=== PATIENT | male | born 1945 | race Caucasian/White ===

== ENCOUNTER 2018-07-11 06:57 | Emergency (ER) | payer OTHER ==
[~2018-07-11] VITALS: Ht 177.8 cm; Wt 99.8 kg
[2018-07-11 06:57] VITALS: BP_SYST 179
[2018-07-11] MEDS ORDERED: COR6.25 PO (07:02)
[2018-07-11] MEDS ORDERED: LISI10TA5 PO (07:02)
[2018-07-11] MEDS ORDERED: BENZ-16 PO (07:02)
[2018-07-11] MEDS ORDERED: FURO-150 PO (07:02)
[2018-07-11] MEDS ORDERED: NITROGLYCERIN 0.4 MG TAB.SUBL SL ONE ×2 (07:13→07:15)
[2018-07-11] MEDS ORDERED: NITROGLYCERIN 1 INCH (GM) OINT. TP ONE (07:15)
[2018-07-11] MEDS ORDERED: IPRATROPIUM BROM 0.5 MG/2.5 ML VIAL.NEB (ATROVENT) IH ONE (07:15)
[2018-07-11] MEDS ORDERED: ASPIRIN 81 MG TAB.CHEW PO ONE ×2 (07:15)
[2018-07-11] MEDS ORDERED: ALBUTEROL SULFATE 0.083% 2.5 MG/3 ML VIAL.NEB IH ONE (07:15)
[2018-07-11] MEDS ORDERED: methylPREDNISolone SOD SUCC/PF 62.5 MG/ML VIAL IVP ONE (07:15)
[2018-07-11] MEDS ORDERED: HEPARIN SODIUM,PORCINE 5000 UNITS/ML VIAL IVP ONE (07:15)
[2018-07-11] MEDS ORDERED: MAGNESIUM SULFATE 50 ML IV ONE (07:15)
[2018-07-11 07:28] LABS: ANION GAP 9 (5-15); BASOPHILS # (AUTO) 0.2 K/uL (0.0-0.2); BASOPHILS % (AUTO) 1.4 % (0.0-2.0); CALCIUM 9.6 mg/dL (8.4-11.0); CHLORIDE 98 mmol/L (98-107); CREATININE 1.49 mg/dL (0.55-1.30); EOSINOPHILS # (AUTO) 0.9 K/uL (0.0-0.4); EOSINOPHILS % (AUTO) 8.3 % (0.0-4.0); GLUCOSE 213 mg/dL (70-99); HEMATOCRIT 54.4 % (36-54); HEMOGLOBIN 18.6 g/dL (14.0-18.0); LYMPHOCYTES # (AUTO) 2.4 K/uL (1.0-5.5); LYMPHOCYTES % (AUTO) 20.9 % (20.5-51.5); MEAN CORPUSCULAR HEMOGLOBIN 32 pg (27-31); MEAN CORPUSCULAR HGB CONC 34 % (32-36); MEAN CORPUSCULAR VOLUME 95 fL (79.0-98.0); MONOCYTES % (AUTO) 8.5 % (1.7-9.3); NEUTROPHILS # (AUTO) 6.8 K/uL (1.8-7.7); NEUTROPHILS % (AUTO) 60.9 % (40.0-70.0); PLATELET COUNT (AUTO) 252 K/uL (130-430); POTASSIUM 4.7 mmol/L (3.5-5.1); RED BLOOD CELL COUNT(AUTO) 5.74 MIL/uL (4.2-6.2); RED CELL DISTRIBUTION WIDTH 14.1 % (9.0-15.0); SODIUM SERUM 134 mmol/L (136-145); UREA NITROGEN, BLOOD 18 mg/dL (8-21); WHITE BLOOD COUNT (AUTO) 11.3 K/uL (4.8-10.8)
[2018-07-11 07:32] LABS: ALANINE AMINOTRANSFERASE 39 U/L (12-78); ALBUMIN 4.2 g/dL (3.4-4.8); ASPARTATE AMINOTRANSFERASE 23 U/L (10-37); INR 0.9 (0.80-1.20); PROTHROMBIN TIME 9.5 SECS (9.5-12.5); TOTAL BILIRUBIN 0.6 mg/dL (0.0-1.0)
[2018-07-11] MEDS ORDERED: METOPROLOL TARTRATE 5 MG/5 ML VIAL ONE (07:41)
[2018-07-11] MEDS ORDERED: METOPROLOL TARTRATE 5 MG/5 ML VIAL IVP ONE (07:45)
[2018-07-11 07:49] VITALS: BP_SYST 107
== END 2018-07-11 07:49 | disposition short-term general hospital (02) ==
LOC: SED 06:57
DX: I21.3 ST elevation (STEMI) myocardial infarction of unspecified site (principal); R06.02 Shortness of breath; I10 Essential (primary) hypertension; Z86.79 Personal history of other diseases of the circulatory system; Z85.22 Personal history of malignant neoplasm of nasal cavities, middle ear, and accessory sinuses; Z85.828 Personal history of other malignant neoplasm of skin; Z79.899 Other long term (current) drug therapy
CPT/HCPCS: 36415; 36600; 71045; 80053; 82550; 82803; 83880; 84484; 85025; 85610; 85730; 93005; 94640; 94660; 96374; 96375; 99285; J1644; J2930; J3475; J3490; J7613

== ENCOUNTER 2020-07-21 06:30 | Emergency (ER) | payer OTHER ==
[~2020-07-21] VITALS: Ht 172.7 cm; Wt 90.7 kg
[2020-07-21 06:30] VITALS: BP_SYST 162
[~2020-07-21 06:30] MED LIST: BENZ-16 PO; COR6.25 PO; FURO-150 PO; LISI10TA5 PO
[2020-07-21] MEDS: HEPARIN SODIUM,PORCINE 5,000 UNITS/ML VIAL IVP ONE (06:53)
[2020-07-21] MEDS: NITROGLYCERIN 250 ML IV ONE (06:53)
[2020-07-21 06:57] LABS: BASOPHILS # (AUTO) 0.1 K/uL (0.0-0.2); BASOPHILS % (AUTO) 0.4 % (0.0-2.0); EOSINOPHILS % (AUTO) 0.2 % (0.0-4.0); HEMATOCRIT 58.4 % (36-54); HEMOGLOBIN 19.2 g/dL (14.0-18.0); LYMPHOCYTES # (AUTO) 1.1 K/uL (1.0-5.5); LYMPHOCYTES % (AUTO) 7.4 % (20.5-51.5); MEAN CORPUSCULAR HEMOGLOBIN 31 pg (27-31); MEAN CORPUSCULAR HGB CONC 33 % (32-36); MEAN CORPUSCULAR VOLUME 94 fL (79.0-98.0); MONOCYTES # (AUTO) 0.9 K/uL (0.0-1.0); PLATELET COUNT (AUTO) 233 K/uL (130-430); RED CELL DISTRIBUTION WIDTH 14.1 % (9.0-15.0); WHITE BLOOD COUNT (AUTO) 15.1 K/uL (4.8-10.8)
[2020-07-21] MEDS: NITROGLYCERIN 0.4 MG TAB.SUBL SL ONE (06:58)
[2020-07-21] MEDS: ASPIRIN 325 MG TABLET PO ONE (07:01)
[2020-07-21] MEDS ORDERED: HEPARIN SODIUM,PORCINE 5,000 UNITS/ML VIAL ONE (07:09)
[2020-07-21 07:25] LABS: ANION GAP 12 (5-15); CALCIUM 8.5 mg/dL (8.4-11.0); CHLORIDE 99 mmol/L (98-107); CREATININE 1.53 mg/dL (0.55-1.30); GLUCOSE 263 mg/dL (70-99); POTASSIUM 5.2 mmol/L (3.5-5.1); SODIUM SERUM 134 mmol/L (136-145); UREA NITROGEN, BLOOD 15 mg/dL (8-21)
[2020-07-21 07:41] LABS: ALANINE AMINOTRANSFERASE 36 U/L (12-78); ALBUMIN 3.7 g/dL (3.4-4.8); ASPARTATE AMINOTRANSFERASE 34 U/L (10-37); TOTAL BILIRUBIN 0.6 mg/dL (0.0-1.0)
[2020-07-21 08:02] LABS: INR 1.1 (0.80-1.20)
== END 2020-07-21 07:07 | disposition short-term general hospital (02) ==
LOC: SED 06:30
DX: I21.9 Acute myocardial infarction, unspecified (principal); I10 Essential (primary) hypertension; Z79.899 Other long term (current) drug therapy; Z86.73 Personal history of transient ischemic attack (TIA), and cerebral infarction without residual deficits
CPT/HCPCS: 36415; 80053; 82550; 84484; 85025; 85610; 85730; 94660; 96374; 99285; J1644

== ENCOUNTER 2022-02-07 13:13 | Inpatient (IN) | payer OTHER ==
[~2022-02-07] VITALS: Ht 182.9 cm; Wt 84.2 kg
[2022-02-07] VITALS (9 sets, daily range): BP systolic 96–126
[~2022-02-07 13:13] MED LIST changes: +LISI10TA29 PO; -LISI10TA5 PO
[2022-02-07 13:42] LABS: BASOPHILS # (AUTO) 0.1 K/uL (0.0-0.2); BASOPHILS % (AUTO) 0.7 % (0.0-2.0); EOSINOPHILS # (AUTO) 0.6 K/uL (0.0-0.4); HEMATOCRIT 39.9 % (36-54); HEMOGLOBIN 13.4 g/dL (14.0-18.0); LYMPHOCYTES # (AUTO) 1.4 K/uL (1.0-5.5); LYMPHOCYTES % (AUTO) 11.8 % (20.5-51.5); MEAN CORPUSCULAR HEMOGLOBIN 31 pg (27-31); MEAN CORPUSCULAR HGB CONC 34 % (32-36); MEAN CORPUSCULAR VOLUME 91 fL (79.0-98.0); MONOCYTES % (AUTO) 8.2 % (1.7-9.3); NEUTROPHILS # (AUTO) 8.7 K/uL (1.8-7.7); NEUTROPHILS % (AUTO) 74.3 % (40.0-70.0); PLATELET COUNT (AUTO) 293 K/uL (130-430); RED BLOOD CELL COUNT(AUTO) 4.39 MIL/uL (4.2-6.2); RED CELL DISTRIBUTION WIDTH 15.9 % (9.0-15.0); WHITE BLOOD COUNT (AUTO) 11.7 K/uL (4.8-10.8)
[2022-02-07 14:05] LABS: ALANINE AMINOTRANSFERASE 75 U/L (12-78); ALBUMIN 3.2 g/dL (3.4-4.8); ANION GAP 10 (5-15); ASPARTATE AMINOTRANSFERASE 49 U/L (10-37); CALCIUM 7.9 mg/dL (8.4-11.0); CHLORIDE 101 mmol/L (98-107); CREATININE 1.78 mg/dL (0.55-1.30); GLUCOSE 207 mg/dL (70-99); POTASSIUM 4.6 mmol/L (3.5-5.1); SODIUM SERUM 130 mmol/L (136-145); TOTAL BILIRUBIN 0.6 mg/dL (0.0-1.0); UREA NITROGEN, BLOOD 26 mg/dL (8-21)
[2022-02-07] MEDS ORDERED: methylPREDNISolone SOD SUCC 500 MG/VIAL (Solu-MEDROL) IV ONE (15:00)
[2022-02-07] MEDS ORDERED: AZITHROMYCIN 500 MG in NS 250 ML IV ONE (15:00)
[2022-02-07] MEDS ORDERED: IPRATROPIUM BROM 0.5 MG/2.5 ML VIAL.NEB (ATROVENT) INH ONE (15:00)
[2022-02-07] MEDS ORDERED: ALBUTEROL SULFATE 0.083% 2.5 MG/3 ML VIAL.NEB INH ONE ×2 (15:00→16:34)
[2022-02-07] MEDS ORDERED: MAGNESIUM SULFATE 50 ML IV ONE (15:00)
[2022-02-07] MEDS ORDERED: cefTRIAXone 1 GM IVPB PREMIX 50 ML IV ONE (15:00)
[2022-02-07] MEDS ORDERED: METHYLPREDNISOLONE SOD SUCC 40 MG/ML VIAL IVP ONE (15:30)
[2022-02-07] MEDS ORDERED: ASPIRIN 325 MG TABLET PO ONE (16:15)
[2022-02-07] MEDS ORDERED: AZITHROMYCIN 500 MG/VIAL (ZITHROMAX) IV ONE (16:18)
[2022-02-07] MEDS ORDERED: HEPARIN 25,000 UNITS/D5W 250ML 250 ML IV ONE (17:00)
[2022-02-07 17:18] LABS: PHOSPHORUS 3.5 mg/dL (2.7-4.5)
[2022-02-07 17:33] LABS: PROTHROMBIN TIME 9.8 SECS (9.5-12.5)
[2022-02-07] MEDS ORDERED: HEPARIN SODIUM,PORCINE 2000 UNITS/0.4 ML BOLUS IVP PRN (18:00)
[2022-02-07] MEDS ORDERED: HEPARIN SODIUM,PORCINE 3000 UNITS/0.6 ML BOLUS IVP PRN (18:00)
[2022-02-07] MEDS ORDERED: *HEPARIN PER PHARMACY XX PRN (18:00)
[2022-02-07] MEDS ORDERED: HEPARIN SODIUM,PORCINE 5,000 UNITS/ML VIAL IVP ONE (19:00)
[2022-02-07] MEDS ORDERED: HEPARIN 25,000 UNITS in 250 ML PREMIX IV PRN (19:00)
[2022-02-07] MEDS: PIPERACILLIN/TAZO 3.375/DEX-IS 50 ML IV SCH ×2 (19:28→23:41)
[2022-02-07] MEDS ORDERED: DEXTROMET/BENZOCAIN/MENTHOL SF 1 LOZENGE MM PRN (19:30)
[2022-02-07] MEDS: D5/0.45 NS 1,000 ML IV SCH (19:58)
[2022-02-08] VITALS (21 sets, daily range): BP systolic 81–125
[2022-02-08] MEDS: BENZONATATE 100 MG CAPSULE (TESSALON) PO PRN ×2 (03:56→10:17)
[2022-02-08] MEDS: PIPERACILLIN/TAZO 3.375/DEX-IS 50 ML IV SCH ×3 (05:04→17:47)
[2022-02-08] MEDS: D5/0.45 NS 1,000 ML IV SCH ×2 (05:04→15:30)
[2022-02-08 06:32] LABS: BASOPHILS % (AUTO) 0.3 % (0.0-2.0); HEMATOCRIT 37.9 % (36-54); HEMOGLOBIN 12.6 g/dL (14.0-18.0); LYMPHOCYTES # (AUTO) 0.4 K/uL (1.0-5.5); LYMPHOCYTES % (AUTO) 4.4 % (20.5-51.5); MEAN CORPUSCULAR HEMOGLOBIN 30 pg (27-31); MEAN CORPUSCULAR HGB CONC 33 % (32-36); MEAN CORPUSCULAR VOLUME 90 fL (79.0-98.0); MONOCYTES # (AUTO) 0.4 K/uL (0.0-1.0); MONOCYTES % (AUTO) 4.2 % (1.7-9.3); NEUTROPHILS % (AUTO) 91.1 % (40.0-70.0); PLATELET COUNT (AUTO) 244 K/uL (130-430); RED BLOOD CELL COUNT(AUTO) 4.21 MIL/uL (4.2-6.2); RED CELL DISTRIBUTION WIDTH 15.5 % (9.0-15.0); WHITE BLOOD COUNT (AUTO) 9.9 K/uL (4.8-10.8)
[2022-02-08 06:47] LABS: ALANINE AMINOTRANSFERASE 59 U/L (12-78); ALBUMIN 2.9 g/dL (3.4-4.8); ANION GAP 6 (5-15); ASPARTATE AMINOTRANSFERASE 26 U/L (10-37); CALCIUM 7.7 mg/dL (8.4-11.0); CHLORIDE 103 mmol/L (98-107); CREATININE 1.67 mg/dL (0.55-1.30); GLUCOSE 157 mg/dL (70-99); POTASSIUM 4.9 mmol/L (3.5-5.1); SODIUM SERUM 132 mmol/L (136-145); TOTAL BILIRUBIN 0.4 mg/dL (0.0-1.0); UREA NITROGEN, BLOOD 25 mg/dL (8-21)
[2022-02-08] MEDS ORDERED: CARVEDILOL 6.25 MG TABLET (COREG) PO SCH (09:00)
[2022-02-08] MEDS: ALBUTEROL SULFATE 0.083% 2.5 MG/3 ML VIAL.NEB INH PRN ×2 (09:05→14:06)
[2022-02-08] MEDS: DOXYCYCLINE HYCLATE 100 MG in D5W 100 ML IV SCH ×2 (09:13→20:35)
[2022-02-08] MEDS: ACETAMINOPHEN 325 MG TABLET PO PRN (10:18)
[2022-02-08] MEDS: DEXTROMET/BENZOCAIN/MENTHOL SF 1 LOZENGE MM PRN (12:27)
[2022-02-08] MEDS ORDERED: FUROSEMIDE 20 MG/2 ML VIAL IVP ONE (17:00)
[2022-02-08] MEDS: CARVEDILOL 6.25 MG TABLET (COREG) PO SCH (20:31)
[2022-02-08] MEDS: SACUBITRIL/VALSARTAN 24 MG-26 MG 1 TABLET PO SCH (20:36)
[2022-02-08] MEDS: predniSONE 20 MG TABLET PO SCH (20:36)
[2022-02-08] MEDS: TICAGRELOR 60 MG TABLET PO SCH ×2 (20:36→22:08)
[2022-02-08] MEDS ORDERED: METHYLPREDNISOLONE SOD SUCC 40 MG/ML VIAL IVP SCH (21:00)
[2022-02-08] MEDS: traZODone HCL 50 MG TABLET (DESYREL) PO PRN (22:55)
[2022-02-09] VITALS (14 sets, daily range): BP systolic 90–130
[2022-02-09] MEDS: PIPERACILLIN/TAZO 3.375/DEX-IS 50 ML IV SCH ×5 (00:04→23:27)
[2022-02-09] MEDS: BENZONATATE 100 MG CAPSULE (TESSALON) PO PRN (04:25)
[2022-02-09] MEDS: ACETAMINOPHEN 325 MG TABLET PO PRN (04:28)
[2022-02-09] MEDS: DEXTROMET/BENZOCAIN/MENTHOL SF 1 LOZENGE MM PRN ×2 (04:31→16:32)
[2022-02-09 06:48] LABS: BASOPHILS % (AUTO) 0.3 % (0.0-2.0); EOSINOPHILS % (AUTO) 0.2 % (0.0-4.0); HEMATOCRIT 37.1 % (36-54); HEMOGLOBIN 12.2 g/dL (14.0-18.0); LYMPHOCYTES # (AUTO) 0.4 K/uL (1.0-5.5); LYMPHOCYTES % (AUTO) 3.1 % (20.5-51.5); MEAN CORPUSCULAR HEMOGLOBIN 29 pg (27-31); MEAN CORPUSCULAR HGB CONC 33 % (32-36); MEAN CORPUSCULAR VOLUME 89 fL (79.0-98.0); MONOCYTES # (AUTO) 0.5 K/uL (0.0-1.0); MONOCYTES % (AUTO) 4.3 % (1.7-9.3); NEUTROPHILS # (AUTO) 10.8 K/uL (1.8-7.7); NEUTROPHILS % (AUTO) 92.1 % (40.0-70.0); PLATELET COUNT (AUTO) 224 K/uL (130-430); RED BLOOD CELL COUNT(AUTO) 4.15 MIL/uL (4.2-6.2); RED CELL DISTRIBUTION WIDTH 15.8 % (9.0-15.0); WHITE BLOOD COUNT (AUTO) 11.7 K/uL (4.8-10.8)
[2022-02-09 08:13] LABS: ALANINE AMINOTRANSFERASE 54 U/L (12-78); ANION GAP 9 (5-15); ASPARTATE AMINOTRANSFERASE 23 U/L (10-37); CALCIUM 8.1 mg/dL (8.4-11.0); CHLORIDE 101 mmol/L (98-107); CREATININE 1.82 mg/dL (0.55-1.30); GLUCOSE 139 mg/dL (70-99); POTASSIUM 4.9 mmol/L (3.5-5.1); SODIUM SERUM 131 mmol/L (136-145); TOTAL BILIRUBIN 0.5 mg/dL (0.0-1.0); UREA NITROGEN, BLOOD 25 mg/dL (8-21)
[2022-02-09] MEDS: ASPIRIN 81 MG TAB.CHEW PO SCH (08:43)
[2022-02-09] MEDS: CARVEDILOL 6.25 MG TABLET (COREG) PO SCH ×2 (08:44→21:26)
[2022-02-09] MEDS: predniSONE 20 MG TABLET PO SCH ×2 (08:45→21:26)
[2022-02-09] MEDS: FUROSEMIDE 20 MG/2 ML VIAL IVP SCH (08:45)
[2022-02-09] MEDS: DOXYCYCLINE HYCLATE 100 MG in D5W 100 ML IV SCH ×2 (08:46→21:28)
[2022-02-09] MEDS: SACUBITRIL/VALSARTAN 24 MG-26 MG 1 TABLET PO SCH ×2 (09:04→21:00)
[2022-02-09] MEDS: TICAGRELOR 60 MG TABLET PO SCH ×2 (09:09→21:27)
[2022-02-09] MEDS ORDERED: [UNRECOGNIZED DRUG - OTHER] (09:37)
[2022-02-09] MEDS ORDERED: MONT10TA22 (09:37)
[2022-02-09] MEDS: traZODone HCL 50 MG TABLET (DESYREL) PO PRN (21:31)
[2022-02-10] VITALS (7 sets, daily range): BP systolic 98–132
[2022-02-10] MEDS: ACETAMINOPHEN 325 MG TABLET PO PRN (05:03)
[2022-02-10] MEDS: BENZONATATE 100 MG CAPSULE (TESSALON) PO PRN ×2 (05:03→09:59)
[2022-02-10] MEDS: PIPERACILLIN/TAZO 3.375/DEX-IS 50 ML IV SCH ×3 (05:03→18:03)
[2022-02-10 06:51] LABS: BASOPHILS % (AUTO) 0.1 % (0.0-2.0); EOSINOPHILS % (AUTO) 0.1 % (0.0-4.0); HEMATOCRIT 36.7 % (36-54); HEMOGLOBIN 12.2 g/dL (14.0-18.0); LYMPHOCYTES # (AUTO) 0.4 K/uL (1.0-5.5); LYMPHOCYTES % (AUTO) 3.1 % (20.5-51.5); MEAN CORPUSCULAR HEMOGLOBIN 30 pg (27-31); MEAN CORPUSCULAR HGB CONC 33 % (32-36); MEAN CORPUSCULAR VOLUME 90 fL (79.0-98.0); MONOCYTES # (AUTO) 0.6 K/uL (0.0-1.0); MONOCYTES % (AUTO) 4.3 % (1.7-9.3); NEUTROPHILS % (AUTO) 92.4 % (40.0-70.0); PLATELET COUNT (AUTO) 230 K/uL (130-430); RED BLOOD CELL COUNT(AUTO) 4.08 MIL/uL (4.2-6.2); RED CELL DISTRIBUTION WIDTH 15.7 % (9.0-15.0)
[2022-02-10 07:33] LABS: ANION GAP 11 (5-15); CALCIUM 8.6 mg/dL (8.4-11.0); CHLORIDE 102 mmol/L (98-107); CREATININE 1.65 mg/dL (0.55-1.30); GLUCOSE 139 mg/dL (70-99); POTASSIUM 4.8 mmol/L (3.5-5.1); SODIUM SERUM 135 mmol/L (136-145); UREA NITROGEN, BLOOD 27 mg/dL (8-21)
[2022-02-10 07:34] LABS: ALANINE AMINOTRANSFERASE 38 U/L (12-78); ALBUMIN 2.8 g/dL (3.4-4.8); ASPARTATE AMINOTRANSFERASE 16 U/L (10-37); C-REACTIVE PROTEIN QUANT 0.3 mg/dL (0-0.5); PHOSPHORUS 3.4 mg/dL (2.7-4.5)
[2022-02-10 08:44] LABS: ERYTHROCYTE SEDIMENTATION RATE 14 MM/HR (0-15)
[2022-02-10] MEDS ORDERED: HYDROcodone/ACETAMIN 5-325 MG TAB (NORCO/ VICODIN) PO PRN (09:00)
[2022-02-10] MEDS: TICAGRELOR 60 MG TABLET PO SCH ×2 (09:00→20:45)
[2022-02-10 09:15] LABS: TOTAL BILIRUBIN 0.5 mg/dL (0.0-1.0)
[2022-02-10] MEDS: ASPIRIN 81 MG TAB.CHEW PO SCH (09:56)
[2022-02-10] MEDS: CARVEDILOL 6.25 MG TABLET (COREG) PO SCH ×2 (09:57→20:46)
[2022-02-10] MEDS: HYDROcodone/ACETAMIN 10-325 MG TAB PO PRN ×3 (09:58→18:04)
[2022-02-10] MEDS: predniSONE 20 MG TABLET PO SCH ×2 (09:59→20:46)
[2022-02-10] MEDS: FUROSEMIDE 20 MG/2 ML VIAL IVP SCH (10:00)
[2022-02-10] MEDS: DOXYCYCLINE HYCLATE 100 MG in D5W 100 ML IV SCH ×2 (10:01→20:44)
[2022-02-10] MEDS: SACUBITRIL/VALSARTAN 24 MG-26 MG 1 TABLET PO SCH ×2 (10:02→20:46)
[2022-02-10] MEDS: traZODone HCL 50 MG TABLET (DESYREL) PO PRN (20:57)
[2022-02-11] VITALS: BP_SYST 82
[2022-02-11] MEDS: PIPERACILLIN/TAZO 3.375/DEX-IS 50 ML IV SCH ×5 (00:14→23:35)
[2022-02-11] MEDS: HYDROcodone/ACETAMIN 10-325 MG TAB PO PRN ×2 (02:08→20:49)
[2022-02-11 06:43] LABS: BASOPHILS % (AUTO) 0.1 % (0.0-2.0); EOSINOPHILS % (AUTO) 0.1 % (0.0-4.0); HEMATOCRIT 41.1 % (36-54); HEMOGLOBIN 13.4 g/dL (14.0-18.0); LYMPHOCYTES # (AUTO) 0.4 K/uL (1.0-5.5); LYMPHOCYTES % (AUTO) 2.7 % (20.5-51.5); MEAN CORPUSCULAR HEMOGLOBIN 30 pg (27-31); MEAN CORPUSCULAR HGB CONC 33 % (32-36); MEAN CORPUSCULAR VOLUME 91 fL (79.0-98.0); MONOCYTES # (AUTO) 0.7 K/uL (0.0-1.0); MONOCYTES % (AUTO) 4.7 % (1.7-9.3); NEUTROPHILS # (AUTO) 13.4 K/uL (1.8-7.7); NEUTROPHILS % (AUTO) 92.4 % (40.0-70.0); PLATELET COUNT (AUTO) 257 K/uL (130-430); RED BLOOD CELL COUNT(AUTO) 4.53 MIL/uL (4.2-6.2); WHITE BLOOD COUNT (AUTO) 14.5 K/uL (4.8-10.8)
[2022-02-11 07:15] LABS: ALANINE AMINOTRANSFERASE 34 U/L (12-78); ALBUMIN 2.8 g/dL (3.4-4.8); ANION GAP 10 (5-15); ASPARTATE AMINOTRANSFERASE 16 U/L (10-37); CALCIUM 8.7 mg/dL (8.4-11.0); CHLORIDE 100 mmol/L (98-107); CREATININE 2.43 mg/dL (0.55-1.30); GLUCOSE 137 mg/dL (70-99); PHOSPHORUS 4.5 mg/dL (2.7-4.5); POTASSIUM 4.8 mmol/L (3.5-5.1); SODIUM SERUM 130 mmol/L (136-145); TOTAL BILIRUBIN 0.5 mg/dL (0.0-1.0); UREA NITROGEN, BLOOD 32 mg/dL (8-21)
[2022-02-11 08:10] VITALS: BP_SYST 125
[2022-02-11 08:48] LABS: C-REACTIVE PROTEIN QUANT < 0.2 mg/dL (0-0.5)
[2022-02-11 09:04] LABS: ERYTHROCYTE SEDIMENTATION RATE 9 MM/HR (0-15)
[2022-02-11] MEDS: TICAGRELOR 60 MG TABLET PO SCH ×2 (10:16→20:43)
[2022-02-11] MEDS: CARVEDILOL 6.25 MG TABLET (COREG) PO SCH ×2 (10:16→20:43)
[2022-02-11] MEDS: SACUBITRIL/VALSARTAN 24 MG-26 MG 1 TABLET PO SCH ×2 (10:16→20:43)
[2022-02-11] MEDS: FUROSEMIDE 20 MG/2 ML VIAL IVP SCH (10:17)
[2022-02-11] MEDS: DOXYCYCLINE HYCLATE 100 MG in D5W 100 ML IV SCH ×2 (10:18→20:41)
[2022-02-11] MEDS: DEXTROMET/BENZOCAIN/MENTHOL SF 1 LOZENGE MM PRN (10:28)
[2022-02-11] MEDS: predniSONE 20 MG TABLET PO SCH (10:33)
[2022-02-11] MEDS: ASPIRIN 81 MG TAB.CHEW PO SCH (10:33)
[2022-02-11 11:30] VITALS: BP_SYST 102
[2022-02-11 15:45] VITALS: BP_SYST 104
[2022-02-11 19:45] VITALS: BP_SYST 112
[2022-02-11 20:00] VITALS: BP_SYST 112
[2022-02-11] MEDS: traZODone HCL 50 MG TABLET (DESYREL) PO PRN (20:46)
[2022-02-12] VITALS: BP_SYST 97
[2022-02-12] MEDS: HYDROcodone/ACETAMIN 10-325 MG TAB PO PRN ×2 (00:40→05:59)
[2022-02-12] MEDS: DEXTROMET/BENZOCAIN/MENTHOL SF 1 LOZENGE MM PRN (05:59)
[2022-02-12] MEDS: PIPERACILLIN/TAZO 3.375/DEX-IS 50 ML IV SCH (06:10)
[2022-02-12 06:11] LABS: BASOPHILS # (AUTO) 0.1 K/uL (0.0-0.2); BASOPHILS % (AUTO) 0.5 % (0.0-2.0); EOSINOPHILS # (AUTO) 0.1 K/uL (0.0-0.4); HEMATOCRIT 38.7 % (36-54); HEMOGLOBIN 12.8 g/dL (14.0-18.0); LYMPHOCYTES # (AUTO) 0.8 K/uL (1.0-5.5); LYMPHOCYTES % (AUTO) 5.9 % (20.5-51.5); MEAN CORPUSCULAR HEMOGLOBIN 30 pg (27-31); MEAN CORPUSCULAR HGB CONC 33 % (32-36); MEAN CORPUSCULAR VOLUME 90 fL (79.0-98.0); MONOCYTES # (AUTO) 0.9 K/uL (0.0-1.0); MONOCYTES % (AUTO) 7.1 % (1.7-9.3); NEUTROPHILS % (AUTO) 85.5 % (40.0-70.0); PLATELET COUNT (AUTO) 251 K/uL (130-430); RED BLOOD CELL COUNT(AUTO) 4.29 MIL/uL (4.2-6.2); RED CELL DISTRIBUTION WIDTH 16.5 % (9.0-15.0); WHITE BLOOD COUNT (AUTO) 12.9 K/uL (4.8-10.8)
[2022-02-12 06:50] LABS: ALANINE AMINOTRANSFERASE 32 U/L (12-78); ALBUMIN 2.6 g/dL (3.4-4.8); ANION GAP 8 (5-15); ASPARTATE AMINOTRANSFERASE 17 U/L (10-37); CALCIUM 8.1 mg/dL (8.4-11.0); CHLORIDE 100 mmol/L (98-107); CREATININE 2.45 mg/dL (0.55-1.30); GLUCOSE 114 mg/dL (70-99); POTASSIUM 4.3 mmol/L (3.5-5.1); SODIUM SERUM 129 mmol/L (136-145); TOTAL BILIRUBIN 0.5 mg/dL (0.0-1.0); UREA NITROGEN, BLOOD 40 mg/dL (8-21)
[2022-02-12 07:38] VITALS: BP_SYST 101
[2022-02-12] MEDS: DOXYCYCLINE HYCLATE 100 MG in D5W 100 ML IV SCH (09:00)
[2022-02-12] MEDS: CARVEDILOL 6.25 MG TABLET (COREG) PO SCH (09:00)
[2022-02-12] MEDS: predniSONE 20 MG TABLET PO SCH (09:03)
[2022-02-12] MEDS: TICAGRELOR 60 MG TABLET PO SCH (09:04)
[2022-02-12] MEDS: SACUBITRIL/VALSARTAN 24 MG-26 MG 1 TABLET PO SCH (09:05)
[2022-02-12] MEDS: ASPIRIN 81 MG TAB.CHEW PO SCH (09:05)
[2022-02-12 11:31] VITALS: BP_SYST 102
[2022-02-12 12:08] VITALS: BP_SYST 105
[2022-02-12 21:06] LABS: MYCOPLASMA PNEUMONIAE IgM <770 U/mL (0-769)
[2022-02-13] MEDS ORDERED: FUROSEMIDE 20 MG/2 ML VIAL IVP SCH (09:00)
[2022-02-18 11:51] LABS: MYCOPLASMA PNEUMONIAE IgG 511 U/mL (0-99)
== END 2022-02-12 13:15 | disposition home health service (06) | DRG 871 ==
LOC: SED 13:13 → SIC 15:29 → STU 02-09 18:59
PROVIDERS: ADMIT Internal Medicine Hospice and Palliative Medicine; ATTEND Internal Medicine Hospice and Palliative Medicine
PROC: 5A09357 Assistance with Respiratory Ventilation, Less than 24 Consecutive Hours, Continuous Positive Airway Pressure (ICD-10-PCS; principal; 2022-02-07)
DX: A41.9 Sepsis, unspecified organism (principal); J96.01 Acute respiratory failure with hypoxia; E43 Unspecified severe protein-calorie malnutrition; J15.9 Unspecified bacterial pneumonia; J69.0 Pneumonitis due to inhalation of food and vomit; I50.23 Acute on chronic systolic (congestive) heart failure; J44.0 Chronic obstructive pulmonary disease with (acute) lower respiratory infection; E87.1 Hypo-osmolality and hyponatremia; N17.9 Acute kidney failure, unspecified; I42.0 Dilated cardiomyopathy; I13.0 Hypertensive heart and chronic kidney disease with heart failure and stage 1 through stage 4 chronic kidney disease, or unspecified chronic kidney disease; J44.1 Chronic obstructive pulmonary disease with (acute) exacerbation; Q89.3 Situs inversus; N18.4 Chronic kidney disease, stage 4 (severe); R10.32 Left lower quadrant pain; R73.9 Hyperglycemia, unspecified; I25.10 Atherosclerotic heart disease of native coronary artery without angina pectoris; E83.51 Hypocalcemia; C32.0 Malignant neoplasm of glottis; Z20.822 Contact with and (suspected) exposure to COVID-19; I25.5 Ischemic cardiomyopathy; I73.9 Peripheral vascular disease, unspecified; Z90.49 Acquired absence of other specified parts of digestive tract; Z95.1 Presence of aortocoronary bypass graft; Z95.5 Presence of coronary angioplasty implant and graft; Z87.891 Personal history of nicotine dependence; Z68.25 Body mass index [BMI] 25.0-25.9, adult; Z79.899 Other long term (current) drug therapy; Z85.22 Personal history of malignant neoplasm of nasal cavities, middle ear, and accessory sinuses
CPT/HCPCS: 36415; 36600; 71045; 71270-TC; 76376; 76770; 80053; 82550; 82800-TC; 82803-TC; 83605; 83735; 83880; 84100; 84484; 85025; 85379; 85610-TC; 85651-TC; 85730-TC; 86140; 86738; 87040; 87081; 87449; 93005; 93306; 93923; 93970; 94660; 94760; 96365; 96367; 96368; 96375; 99291; G0378; J0456; J0696; J1030; J1644; J1940; J2543; J3475; J3490; J7060; J7512; J7613